=== PATIENT | male | born 1985 | race Caucasian/White ===

== ENCOUNTER 2016-11-11 12:16 | Emergency (ER) | payer OTHER ==
[~2016-11-11] VITALS: Ht 185.4 cm; Wt 75.0 kg
[2016-11-11 12:19] VITALS: BP 117/66; PULSE 82; RESP 15; TEMP 98.2; O2SAT 98
[2016-11-11] MEDS ORDERED: TETANUS/DIPHTHERIA TOXOID ADULT 0.5 ML VIAL IM ONE (12:45)
[2016-11-11] MEDS ORDERED: ONDANSETRON HCL 4 MG/2 ML VIAL IVP ONE (12:45)
[2016-11-11] MEDS ORDERED: SODIUM CHLORIDE 0.9% FLUSH 10 ML FLUSH IV FLUSH PRN (12:45)
[2016-11-11] MEDS ORDERED: LORazepam 2 MG/ML VIAL IV PUSH ONE (12:45)
[2016-11-11] MEDS ORDERED: MORPHINE SULFATE 4 MG/ML INJ IV PUSH ONE ×2 (12:45→14:15)
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
[2016-11-11 13:12] LABS: BASOPHIL % 0.2 % (0.0-2.0); EOSINOPHIL # 0.1 TH/MM3 (0-0.4); EOSINOPHIL % 0.8 % (0.0-4.0); HEMATOCRIT 38.5 % (39.0-51.0); HEMO FLAGS DIFF FINAL; LYMPH % 14.3 % (9.0-44.0); MEAN CELL VOLUME 86.9 FL (80.0-100.0); MEAN CORPUSCULAR HEMOGLOBIN 29.1 PG (27.0-34.0); MEAN CORPUSCULAR HGB CONC 33.5 % (32.0-36.0); MONO % 5.2 % (0.0-8.0); NEUT % 79.5 % (16.0-70.0); PLATELET COUNT 187 TH/MM3 (150-450); RED BLOOD COUNT 4.43 MIL/MM3 (4.50-5.90); RED CELL DISTRIBUTION WIDTH 13.2 % (11.6-17.2); WHITE BLOOD COUNT 13.9 TH/MM3 (4.0-11.0)
[2016-11-11 13:34] LABS: PROTHROMBIN TIME - PATIENT 11.4 SEC (9.8-11.6)
[2016-11-11 13:35] LABS: ALT (GPT) 40 U/L (12-78); ANION GAP 6 MEQ/L (5-15); AST (GOT) 33 U/L (15-37); BICARBONATE 26.5 MEQ/L (21.0-32.0); BLOOD UREA NITROGEN 12 MG/DL (7-18); CHLORIDE 109 MEQ/L (98-107); GLOMERULAR FILTRATION RATE 79 ML/MIN (>89); SODIUM (NA) 141 MEQ/L (136-145)
[2016-11-11 13:37] LABS: ALKALINE PHOSPHATASE 74 U/L (45-117); TOTAL BILIRUBIN ADULT 0.2 MG/DL (0.2-1.0)
[2016-11-11] MEDS ORDERED: IOHEXOL 350 MG/ML 10 ML VIAL (for RAD DIAG) IVCONTRAST ONE (15:11)
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
[2016-11-11] MEDS ORDERED: CYCL5TAB PO (15:54)
[2016-11-11] MEDS ORDERED: IBUP800T23 PO (15:54)
[2016-11-11] MEDS ORDERED: TYLETAB34 PO (15:54)
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
[2016-11-11 16:21] VITALS: BP 115/64
== END 2016-11-11 16:51 | disposition home or self-care (01) ==
LOC: NEPD 12:16
DX: S32.030A Wedge compression fracture of third lumbar vertebra, initial encounter for closed fracture (principal); V43.52XA Car driver injured in collision with other type car in traffic accident, initial encounter; Y92.414 Local residential or business street as the place of occurrence of the external cause; R10.30 Lower abdominal pain, unspecified
CPT/HCPCS: 29505; 72131; 74177; 80053; 85025; 85610; 85730; 90471; 90714; 96374; 96375; 96376; 99285; J2060; J2270; J2405; L0484; Q9967